=== PATIENT | female | born 1935 | race Caucasian/White ===

== ENCOUNTER 2016-06-09 16:53 | Inpatient (IN) | payer OTHER, MEDICAID ==
[~2016-06-09] VITALS: Ht 167.6 cm; Wt 64.0 kg
[2016-06-09 16:53] VITALS: BP 121/64; PULSE 89; RESP 16; TEMP 98.2; O2SAT 99
[~2016-06-09 16:53] MED LIST: ACET-2165 PO; CALC-1100 PO; DEXT1DRO6 OP; PRO20 PO; SENN-153 PO
[2016-06-09] MEDS ORDERED: NS 1000 ML BAG IV ONE (17:30)
[2016-06-09 18:09] LABS: BASOPHILS % (AUTO) 0.4 % (0.0-2.0); LYMPHOCYTES # (AUTO) 0.8 K/uL (1.0-5.5); MEAN CORPUSCULAR HEMOGLOBIN 23 pg (27-31); MEAN CORPUSCULAR HGB CONC 30 % (32-36); MEAN CORPUSCULAR VOLUME 78 fL (79.0-98.0); MONOCYTES # (AUTO) 0.6 K/uL (0.0-1.0); MONOCYTES % (AUTO) 7.2 % (1.7-9.3); NEUTROPHILS # (AUTO) 7.5 K/uL (1.8-7.7); NEUTROPHILS % (AUTO) 83.4 % (40.0-70.0); PLATELET COUNT (AUTO) 409 K/uL (130-430); RED BLOOD CELL COUNT(AUTO) 2.17 MIL/uL (4.2-6.2); RED CELL DISTRIBUTION WIDTH 19.8 % (9.0-15.0); WHITE BLOOD COUNT (AUTO) 8.9 K/uL (4.8-10.8)
[2016-06-09 18:22] LABS: HEMATOCRIT 16.8 % (36-48)
[2016-06-09 18:23] LABS: ANION GAP 7 (5-15); CALCIUM 8.3 mg/dL (8.4-11.0); CHLORIDE 106 mmol/L (98-107); CREATININE 0.81 mg/dL (0.55-1.30); GLUCOSE 111 mg/dL (70-99); POTASSIUM 4.5 mmol/L (3.5-5.1); SODIUM SERUM 136 mmol/L (136-145); UREA NITROGEN, BLOOD 17 mg/dL (8-21)
[2016-06-09 18:27] LABS: ALANINE AMINOTRANSFERASE 15 U/L (12-78); ALBUMIN 2.2 g/dL (3.4-4.8); ASPARTATE AMINOTRANSFERASE 15 U/L (10-37); TOTAL BILIRUBIN 0.2 mg/dL (0.0-1.0); TOTAL PROTEIN, SERUM 5.7 g/dL (6.4-8.3)
[2016-06-09] MEDS ORDERED: ACETAMINOPHEN 325 MG TABLET PO ONE (19:45)
[2016-06-09] MEDS ORDERED: DIPHENHYDRAMINE INJ 50 MG/ML VIAL IVP ONE (19:45)
[2016-06-09 19:52] LABS: INR 0.9 (0.8-1.2); PROTHROMBIN TIME 10.2 SECS (9.5-12.5)
[2016-06-09 20:27] LABS: BILIRUBIN,URINE NEGATIVE (NEGATIVE); BLOOD, URINE NEGATIVE (NEGATIVE); COLOR,URINE YELLOW (YELLOW); GLUCOSE,URINE NEGATIVE (NEGATIVE); KETONES,URINE NEGATIVE (NEGATIVE); LEUKOCYTE ESTERASE ,URINE 2+ (NEGATIVE); NITRITE, URINE NEGATIVE (NEGATIVE); PROTEIN URINE NEGATIVE (NEGATIVE); UROBILINOGEN,URINE 0.2 (0.2-1.0)
[2016-06-09 20:28] LABS: CLARITY/URINE SLIGHTLY HAZY (CLEAR)
[2016-06-09 20:31] LABS: BACTERIA,URINE MODERATE /HPF (None Seen); MUCUS,URINE None Seen /LPF (None Seen); RBC,URINE NONE SEEN /HPF (0-3); WBC,URINE >100 /HPF (0-3)
[2016-06-10] MEDS ORDERED: DIPHENHYDRAMINE INJ 50 MG/ML VIAL ONE (04:00)
[2016-06-10] MEDS ORDERED: ACETAMINOPHEN 650 MG/20.3 ML UDC ONE (04:02)
[2016-06-10] MEDS ORDERED: IPRATROPIUM/ALBUTEROL SULFATE 3 ML AMPUL.NEB INH PRN (04:30)
[2016-06-10] MEDS ORDERED: IPRATROPIUM/ALBUTEROL SULFATE 3 ML AMPUL.NEB ONE (05:42)
[2016-06-10] MEDS ORDERED: LEVOFLOXACIN 500 MG/D5W 100 ML IV ONE (06:00)
[2016-06-10] MEDS: NACL 0.9% 1,000 ML IV SCH ×2 (07:19→18:28)
[2016-06-10] MEDS: IPRATROPIUM/ALBUTEROL SULFATE 3 ML AMPUL.NEB INH SCH ×5 (07:23→20:52)
[2016-06-10 07:57] VITALS: BP 130/58; PULSE 89; RESP 20; TEMP 98.8; O2SAT 96
[2016-06-10] MEDS ORDERED: ACETAMINOPHEN 325 MG TABLET PO PRN (08:15)
[2016-06-10] MEDS: LACTOBACILLUS RHAMNOSUS GG 1 CAP CAPSULE PO SCH ×2 (09:13→20:54)
[2016-06-10] MEDS: FLUoxetine HCL 20 MG CAPSULE (PROzac) PO SCH (09:13)
[2016-06-10] MEDS: PANTOPRAZOLE SODIUM 40 MG/VIAL (PROTONIX) IVP SCH (09:13)
[2016-06-10 09:30] VITALS: BP 153/70; PULSE 90; RESP 18; TEMP 98.3; O2SAT 97
[2016-06-10 12:11] VITALS: BP 130/58; PULSE 90
[2016-06-10 18:24] VITALS: BP 139/63; PULSE 91; RESP 18; TEMP 98.1; O2SAT 97
[2016-06-10 20:00] VITALS: BP 166/84; PULSE 93; RESP 20; TEMP 98.2; O2SAT 95
[2016-06-11] VITALS (9 sets, daily range): BP systolic 122–153; BP diastolic 65–88; PULSE 94–118; RESP 16–20; TEMP 97–98.8; O2SAT 92–98; Ht 167.6 cm; Wt 64.0 kg
[2016-06-11] MEDS: IPRATROPIUM/ALBUTEROL SULFATE 3 ML AMPUL.NEB INH SCH ×6 (00:17→19:57)
[2016-06-11] MEDS: NACL 0.9% 1,000 ML IV SCH ×2 (06:08→17:50)
[2016-06-11 08:21] LABS: BASOPHILS % (AUTO) 0.3 % (0.0-2.0); EOSINOPHILS # (AUTO) 0.1 K/uL (0.0-0.4); EOSINOPHILS % (AUTO) 0.8 % (0.0-4.0); HEMATOCRIT 25.7 % (36-48); HEMOGLOBIN 8.1 g/dL (12.0-16.0); LYMPHOCYTES # (AUTO) 1.1 K/uL (1.0-5.5); LYMPHOCYTES % (AUTO) 11.6 % (20.5-51.5); MEAN CORPUSCULAR HEMOGLOBIN 25 pg (27-31); MEAN CORPUSCULAR HGB CONC 32 % (32-36); MEAN CORPUSCULAR VOLUME 80 fL (79.0-98.0); MONOCYTES # (AUTO) 0.9 K/uL (0.0-1.0); MONOCYTES % (AUTO) 9.3 % (1.7-9.3); PLATELET COUNT (AUTO) 324 K/uL (130-430); WHITE BLOOD COUNT (AUTO) 9.1 K/uL (4.8-10.8)
[2016-06-11 08:53] LABS: PROTHROMBIN TIME 10.7 SECS (9.5-12.5)
[2016-06-11] MEDS: PANTOPRAZOLE SODIUM 40 MG/VIAL (PROTONIX) IVP SCH (08:55)
[2016-06-11] MEDS: LEVOFLOXACIN 500 MG/D5W 100 ML IV SCH (08:58)
[2016-06-11] MEDS: LACTOBACILLUS RHAMNOSUS GG 1 CAP CAPSULE PO SCH ×2 (09:00→21:32)
[2016-06-11] MEDS: FLUoxetine HCL 20 MG CAPSULE (PROzac) PO SCH (09:00)
[2016-06-11 09:08] LABS: ANION GAP 8 (5-15); CHLORIDE 108 mmol/L (98-107); CREATININE 0.59 mg/dL (0.55-1.30); GLUCOSE 79 mg/dL (70-99); POTASSIUM 3.6 mmol/L (3.5-5.1); SODIUM SERUM 138 mmol/L (136-145); THYROID STIMULATING HORMONE 1.31 uIu/mL (0.34-4.82); UREA NITROGEN, BLOOD 11 mg/dL (8-21)
[2016-06-11] MEDS: BUDESONIDE 0.5 MG/2 ML AMPUL.NEB INH SCH ×2 (09:36→19:57)
[2016-06-11 09:57] LABS: IRON (SERUM) 15 mcg/dL (37-145); TOTAL IRON BIND. CAPACITY 320 ug/dL (250-450)
[2016-06-11] MEDS ORDERED: MEPERIDINE HCL/PF 100 MG/ML AMP ONE (14:57)
[2016-06-11] MEDS: MEPERIDINE HCL/PF 50 MG/ML AMP ONE ×2 (16:14→16:17)
[2016-06-11] MEDS: MIDAZOLAM HCL 5 MG/5 ML VIAL ONE ×2 (16:14→16:17)
[2016-06-11] MEDS ORDERED: SORBITOL 70% SOLUTION, 30 ML UDBTL PO ONE (16:45)
[2016-06-11] MEDS ORDERED: BISACODYL 5 MG TABLET.DR (DULCOLAX) PO ONE (17:00)
[2016-06-11] MEDS: LACTULOSE 20 GM/30 ML UDC PO SCH ×2 (17:51→21:32)
[2016-06-11] MEDS ORDERED: MAGNESIUM CITRATE 300 ML ORAL SOLUTION PO ONE (19:00)
[2016-06-12] MEDS: IPRATROPIUM/ALBUTEROL SULFATE 3 ML AMPUL.NEB INH SCH ×7 (00:34→23:43)
[2016-06-12 00:37] VITALS: BP_SYST 111; BP_SYST 131; BP_DIAS 59; BP_DIAS 84; PULSE 127; PULSE 72; RESP 20; RESP 22; TEMP 97.1; O2SAT 96; O2SAT 99
[2016-06-12] MEDS: LACTULOSE 20 GM/30 ML UDC PO SCH (00:45)
[2016-06-12] MEDS ORDERED: GOLYTELY / COLYTE SOLUTION 4 LITERS PO ONE (01:15)
[2016-06-12] MEDS: ONDANSETRON HCL 4 MG/2 ML VIAL IVP PRN ×3 (01:51→19:09)
[2016-06-12 04:31] VITALS: BP 118/71; PULSE 117; RESP 20; TEMP 97.4; O2SAT 96
[2016-06-12] MEDS: NACL 0.9% 1,000 ML IV SCH ×2 (05:00→21:29)
[2016-06-12 07:15] LABS: BASOPHILS % (AUTO) 0.3 % (0.0-2.0); EOSINOPHILS % (AUTO) 0.2 % (0.0-4.0); HEMATOCRIT 28.2 % (36-48); HEMOGLOBIN 8.8 g/dL (12.0-16.0); LYMPHOCYTES # (AUTO) 0.7 K/uL (1.0-5.5); MEAN CORPUSCULAR HEMOGLOBIN 25 pg (27-31); MEAN CORPUSCULAR HGB CONC 31 % (32-36); MEAN CORPUSCULAR VOLUME 81 fL (79.0-98.0); MONOCYTES # (AUTO) 0.7 K/uL (0.0-1.0); NEUTROPHILS # (AUTO) 10.3 K/uL (1.8-7.7); NEUTROPHILS % (AUTO) 87.5 % (40.0-70.0); PLATELET COUNT (AUTO) 374 K/uL (130-430); RED BLOOD CELL COUNT(AUTO) 3.49 MIL/uL (4.2-6.2)
[2016-06-12 07:16] LABS: ANION GAP 10 (5-15); CALCIUM 8.3 mg/dL (8.4-11.0); CHLORIDE 107 mmol/L (98-107); CREATININE 0.65 mg/dL (0.55-1.30); GLUCOSE 127 mg/dL (70-99); POTASSIUM 3.1 mmol/L (3.5-5.1); SODIUM SERUM 141 mmol/L (136-145); UREA NITROGEN, BLOOD 15 mg/dL (8-21)
[2016-06-12 07:26] LABS: WHITE BLOOD COUNT (AUTO) 11.7 K/uL (4.8-10.8)
[2016-06-12 08:00] VITALS: BP 140/71; PULSE 97; RESP 16; TEMP 98.7; O2SAT 97
[2016-06-12] MEDS: BUDESONIDE 0.5 MG/2 ML AMPUL.NEB INH SCH ×2 (09:28→20:46)
[2016-06-12] MEDS: FLUoxetine HCL 20 MG CAPSULE (PROzac) PO SCH (10:14)
[2016-06-12] MEDS: PANTOPRAZOLE SODIUM 40 MG/VIAL (PROTONIX) IVP SCH (10:14)
[2016-06-12] MEDS: LACTOBACILLUS RHAMNOSUS GG 1 CAP CAPSULE PO SCH ×2 (10:14→21:28)
[2016-06-12] MEDS: LEVOFLOXACIN 500 MG/D5W 100 ML IV SCH (10:15)
[2016-06-12 11:32] VITALS: BP 141/71; PULSE 87; RESP 19; TEMP 98.7; O2SAT 97
[2016-06-12] MEDS ORDERED: LACTULOSE 20 GM/30 ML UDC PO SCH (12:00)
[2016-06-12] MEDS ORDERED: SORBITOL 70% SOLUTION, 30 ML UDBTL PO ONE (13:00)
[2016-06-12 14:07] LABS: FOLATE (FOLIC ACID) 19.5 ng/mL (>3.0)
[2016-06-12 15:32] VITALS: BP 155/74; PULSE 101; RESP 18; TEMP 97.3; O2SAT 94
[2016-06-12] MEDS ORDERED: KCL 40 mEq in 100 mL (PREMIX) 40 MEQ, LIDOCAINE JECT 2% PF 100 MG 75 MG in NS 150 ML IV ONE (16:30)
[2016-06-12] MEDS ORDERED: METOCLOPRAMIDE HCL 10 MG/2 ML VIAL IVP ONE (16:30)
[2016-06-12] MEDS ORDERED: KCL 40 mEq in 100 mL (PREMIX) 0 ML IV ONE (16:46)
[2016-06-12] MEDS: METOCLOPRAMIDE HCL 10 MG/2 ML VIAL IVP SCH ×2 (16:48→21:29)
[2016-06-12] MEDS ORDERED: BISACODYL 5 MG TABLET.DR (DULCOLAX) PO ONE (17:00)
[2016-06-12] MEDS ORDERED: LIDOCAINE JECT IV ONE (17:00)
[2016-06-12] MEDS ORDERED: POTASSIUM CHLORIDE IV ONE (17:00)
[2016-06-12] MEDS ORDERED: NS IV ONE (17:00)
[2016-06-12] MEDS ORDERED: GOLYTELY / COLYTE SOLUTION 4 LITERS NG ONE (18:00)
[2016-06-12] MEDS ORDERED: MAGNESIUM CITRATE 300 ML ORAL SOLUTION PO ONE (19:00)
[2016-06-12 19:08] VITALS: BP 159/98; PULSE 96; RESP 20; TEMP 98.6; O2SAT 96
[2016-06-13] MEDS: ONDANSETRON HCL 4 MG/2 ML VIAL IVP PRN (01:44)
[2016-06-13] MEDS: IPRATROPIUM/ALBUTEROL SULFATE 3 ML AMPUL.NEB INH SCH ×6 (03:00→23:11)
[2016-06-13 06:41] VITALS: BP 106/70; PULSE 65; RESP 20; TEMP 97.4; O2SAT 100
[2016-06-13 07:19] LABS: ANION GAP 4 (5-15); CALCIUM 8.2 mg/dL (8.4-11.0); CHLORIDE 111 mmol/L (98-107); CREATININE 0.64 mg/dL (0.55-1.30); GLUCOSE 103 mg/dL (70-99); POTASSIUM 3.8 mmol/L (3.5-5.1); SODIUM SERUM 141 mmol/L (136-145); UREA NITROGEN, BLOOD 14 mg/dL (8-21)
[2016-06-13 07:25] LABS: EOSINOPHILS % (AUTO) 0.1 % (0.0-4.0); HEMATOCRIT 24.9 % (36-48); HEMOGLOBIN 7.8 g/dL (12.0-16.0); LYMPHOCYTES # (AUTO) 0.6 K/uL (1.0-5.5); LYMPHOCYTES % (AUTO) 5.2 % (20.5-51.5); MEAN CORPUSCULAR HEMOGLOBIN 26 pg (27-31); MEAN CORPUSCULAR HGB CONC 32 % (32-36); MEAN CORPUSCULAR VOLUME 81 fL (79.0-98.0); MONOCYTES # (AUTO) 0.7 K/uL (0.0-1.0); MONOCYTES % (AUTO) 6.8 % (1.7-9.3); NEUTROPHILS # (AUTO) 9.5 K/uL (1.8-7.7); NEUTROPHILS % (AUTO) 87.9 % (40.0-70.0); PLATELET COUNT (AUTO) 331 K/uL (130-430); RED BLOOD CELL COUNT(AUTO) 3.07 MIL/uL (4.2-6.2); RED CELL DISTRIBUTION WIDTH 19.2 % (9.0-15.0); WHITE BLOOD COUNT (AUTO) 10.8 K/uL (4.8-10.8)
[2016-06-13 07:46] LABS: PROTHROMBIN TIME 10.4 SECS (9.5-12.5)
[2016-06-13 08:20] VITALS: BP 143/75; PULSE 89; RESP 17; TEMP 98; O2SAT 98
[2016-06-13] MEDS: BUDESONIDE 0.5 MG/2 ML AMPUL.NEB INH SCH ×2 (08:23→21:11)
[2016-06-13] MEDS: FLUoxetine HCL 20 MG CAPSULE (PROzac) PO SCH (08:27)
[2016-06-13] MEDS: LACTOBACILLUS RHAMNOSUS GG 1 CAP CAPSULE PO SCH ×2 (08:27→21:55)
[2016-06-13] MEDS: PANTOPRAZOLE SODIUM 40 MG/VIAL (PROTONIX) IVP SCH (08:34)
[2016-06-13] MEDS: LEVOFLOXACIN 500 MG/D5W 100 ML IV SCH (08:34)
[2016-06-13] MEDS: NACL 0.9% 1,000 ML IV SCH (10:24)
[2016-06-13] MEDS ORDERED: MIDAZOLAM HCL 5 MG/5 ML VIAL ONE (12:29)
[2016-06-13] MEDS ORDERED: fentaNYL CITRATE/PF 100 MCG/2 ML AMP ONE (12:29)
[2016-06-13 12:49] VITALS: BP 132/56; PULSE 89; RESP 18; TEMP 98.1; O2SAT 100
[2016-06-13] MEDS: METOCLOPRAMIDE HCL 10 MG/2 ML VIAL IVP SCH ×2 (14:34→21:54)
[2016-06-13 16:29] VITALS: BP 132/56; PULSE 89
[2016-06-13 16:47] VITALS: BP 129/56; PULSE 85; RESP 18; TEMP 97.8; O2SAT 100
[2016-06-14 00:01] VITALS: BP 141/66; PULSE 94; RESP 20; TEMP 97; O2SAT 97
[2016-06-14] MEDS: NACL 0.9% 1,000 ML IV SCH ×2 (00:17→14:35)
[2016-06-14 04:10] VITALS: BP 149/64; PULSE 90; RESP 16; TEMP 98.2; O2SAT 98
[2016-06-14] MEDS: IPRATROPIUM/ALBUTEROL SULFATE 3 ML AMPUL.NEB INH SCH ×4 (04:23→15:20)
[2016-06-14] MEDS: METOCLOPRAMIDE HCL 10 MG/2 ML VIAL IVP SCH (05:03)
[2016-06-14 07:35] LABS: BASOPHILS % (AUTO) 0.2 % (0.0-2.0); EOSINOPHILS # (AUTO) 0.1 K/uL (0.0-0.4); EOSINOPHILS % (AUTO) 0.9 % (0.0-4.0); HEMATOCRIT 22.9 % (36-48); HEMOGLOBIN 7.2 g/dL (12.0-16.0); LYMPHOCYTES # (AUTO) 0.8 K/uL (1.0-5.5); LYMPHOCYTES % (AUTO) 5.7 % (20.5-51.5); MEAN CORPUSCULAR HEMOGLOBIN 25 pg (27-31); MEAN CORPUSCULAR HGB CONC 31 % (32-36); MEAN CORPUSCULAR VOLUME 81 fL (79.0-98.0); MONOCYTES # (AUTO) 0.8 K/uL (0.0-1.0); MONOCYTES % (AUTO) 5.1 % (1.7-9.3); NEUTROPHILS # (AUTO) 13.2 K/uL (1.8-7.7); PLATELET COUNT (AUTO) 287 K/uL (130-430); RED BLOOD CELL COUNT(AUTO) 2.84 MIL/uL (4.2-6.2); RED CELL DISTRIBUTION WIDTH 19.5 % (9.0-15.0); WHITE BLOOD COUNT (AUTO) 14.9 K/uL (4.8-10.8)
[2016-06-14 07:59] LABS: ANION GAP 7 (5-15); CHLORIDE 113 mmol/L (98-107); CREATININE 0.53 mg/dL (0.55-1.30); GLUCOSE 81 mg/dL (70-99); POTASSIUM 3.3 mmol/L (3.5-5.1); SODIUM SERUM 144 mmol/L (136-145); UREA NITROGEN, BLOOD 11 mg/dL (8-21)
[2016-06-14 08:00] VITALS: BP 140/61; PULSE 82; RESP 20; TEMP 98.2; O2SAT 98
[2016-06-14] MEDS: FLUoxetine HCL 20 MG CAPSULE (PROzac) PO SCH (09:36)
[2016-06-14] MEDS: LACTOBACILLUS RHAMNOSUS GG 1 CAP CAPSULE PO SCH (09:36)
[2016-06-14] MEDS: LEVOFLOXACIN 500 MG/D5W 100 ML IV SCH (09:55)
[2016-06-14] MEDS: PANTOPRAZOLE SODIUM 40 MG/VIAL (PROTONIX) IVP SCH (09:55)
[2016-06-14] MEDS: BUDESONIDE 0.5 MG/2 ML AMPUL.NEB INH SCH (10:03)
[2016-06-14 11:01] LABS: NEUTROPHILS % (AUTO) 88.1 % (40.0-70.0)
[2016-06-14 12:37] VITALS: BP 139/62; PULSE 84; RESP 19; TEMP 97.9; O2SAT 97
[2016-06-14 14:48] VITALS: BP 134/91; PULSE 90; RESP 18; TEMP 97; O2SAT 98
[2016-06-14 15:03] VITALS: BP 144/62; PULSE 84; RESP 18; TEMP 97.4; O2SAT 98
[2016-06-14] MEDS ORDERED: METOCLOPRAMIDE HCL 10 MG TABLET PO SCH (18:00)
== END 2016-06-14 18:20 | DRG 393 ==
LOC: SED 16:53 → STU 20:11
PROVIDERS: ADMIT Family Medicine; ATTEND Family Medicine
PROC: 0DB68ZX Excision of Stomach, Via Natural or Artificial Opening Endoscopic, Diagnostic (ICD-10-PCS; 2016-06-11)
PROC: 30233N1 Transfusion of Nonautologous Red Blood Cells into Peripheral Vein, Percutaneous Approach (ICD-10-PCS; 2016-06-11)
PROC: 0DB98ZX Excision of Duodenum, Via Natural or Artificial Opening Endoscopic, Diagnostic (ICD-10-PCS; principal; 2016-06-11 16:00)
PROC: 0DBN8ZX Excision of Sigmoid Colon, Via Natural or Artificial Opening Endoscopic, Diagnostic (ICD-10-PCS; 2016-06-13)
PROC: 0DBL8ZX Excision of Transverse Colon, Via Natural or Artificial Opening Endoscopic, Diagnostic (ICD-10-PCS; 2016-06-13)
DX: K55.9 Vascular disorder of intestine, unspecified (principal); K57.33 Diverticulitis of large intestine without perforation or abscess with bleeding; E44.0 Moderate protein-calorie malnutrition; K29.70 Gastritis, unspecified, without bleeding; Z66 Do not resuscitate; D64.9 Anemia, unspecified; E87.6 Hypokalemia; F02.80 Dementia in other diseases classified elsewhere, unspecified severity, without behavioral disturbance, psychotic disturbance, mood disturbance, and anxiety; F32.9 Major depressive disorder, single episode, unspecified; G30.9 Alzheimer's disease, unspecified; J45.909 Unspecified asthma, uncomplicated; K21.9 Gastro-esophageal reflux disease without esophagitis; K44.9 Diaphragmatic hernia without obstruction or gangrene; M81.0 Age-related osteoporosis without current pathological fracture; Z87.81 Personal history of (healed) traumatic fracture; Z68.22 Body mass index [BMI] 22.0-22.9, adult
CPT/HCPCS: 36415; 43239; 45380; 71010; 80048; 80053; 81000-TC; 82607; 82728; 82746; 83540-TC; 83550-TC; 83605; 83735-TC; 83880; 84443-TC; 85025; 85044-TC; 85610-TC; 85730-TC; 86886; 86900; 86901; 86920; 87040-TC; 87081; 87086; 88305; 88312; 88313; 93005; 93306; 94640; 94760; 96361; 96374; 99291; C9113; J1200; J1956; J2175; J2250; J2405; J2765; J3010; J3480; J7030; J7050; J8597; P9021